=== PATIENT | female | born 1995 | race Caucasian/White ===

== ENCOUNTER 2018-05-02 19:45 | Emergency (ER) | payer MEDICAID ==
[~2018-05-02] VITALS: Ht 162.6 cm; Wt 96.2 kg
--- NOTE | 2018-05-02 20:17 | NUR ---
UA COLLECTED AND SENT BY TECH. PT TO US. DELAY IN MEDICATION ADMIN
[2018-05-02 20:21] LABS: MICROSCOPIC NOT IND
[2018-05-02 20:24] LABS: CULTURE INDICATED? NO
[2018-05-02] MEDS ORDERED: ONDANSETRON ODT 4 MG ONE (20:31)
--- NOTE | 2018-05-02 20:35 | NUR ---
FIRST CONTACT WITH PT. PT SITTING UP IN KT V[facility] NOTED. SO AT BEDSIDE. LAB IN TO DRAW. PT MEDICATED PER EMAR FOR NAUSEA. PT REPORTS 17 WEEKS , W/ HX OF N/V W/ . "TODAY IS WORSE". PT REPORTEDLY TOOK ZOFRAN 4MG PO AT HOME AT 1200 AND [employer] REPRESENTATIVE ADDING MACHINES WO RELIEF.
[2018-05-02 20:44] LABS: BASOPHILS # (AUTO) 0.05 x10^3/uL (0-0.1); BASOPHILS % (AUTO) 1 % (0-1); EOSINOPHILS # (AUTO) 0.08 x10^3/uL (0-0.4); EOSINOPHILS % (AUTO) 1 % (1-7); LYMPHOCYTES # (AUTO) 1.64 x10^3/uL (1-3.4); LYMPHOCYTES % (AUTO) 20 % (22-44); MD NO; MEAN CORPUSCULAR HEMOGLOBIN 32.2 pg (27.0-34.8); MEAN PLATELET VOLUME 8.3 fL (7.4-10.4); MONOCYTES # (AUTO) 0.46 x10^3/uL (0.2-0.8); MONOCYTES % (AUTO) 6 % (2-9); NEUTROPHILS # (AUTO) 5.93 x10^3/uL (1.8-6.8); NEUTROPHILS % (AUTO) 73 % (42-75); PLATELET COUNT 270 x10^3/uL (130-400); RED BLOOD COUNT 4.41 x10^6/uL (3.82-5.3); RED CELL DISTRIBUTION WIDTH 13.9 % (9.6-15.2)
[2018-05-02] MEDS ORDERED: PROMETHAZINE 25 MG/ML, 1ML IM STA ×2 (20:52→21:07)
[2018-05-02 20:56] LABS: ALANINE AMINOTRANSFERASE 19 U/L (12-78); ALBUMIN 3.3 g/dL (3.4-5.0); ANION GAP 8 mmol/L (5-15); CALCIUM 8.9 mg/dL (8.5-10.1); CHLORIDE 111 mmol/L (98-107); CREATININE 0.59 mg/dL (0.55-1.02)
[2018-05-02 20:59] LABS: ALKALINE PHOSPHATASE 73 U/L (45-117); BILIRUBIN,TOTAL 0.4 mg/dL (0.2-1.0); TOTAL PROTEIN 7.2 g/dL (6.4-8.2)
[2018-05-02] MEDS ORDERED: ONDANSETRON ODT 4 MG PO ONE (21:00)
[2018-05-02] MEDS ORDERED: PROMETHAZINE 25 MG/ML, 1ML ONE (21:08)
--- NOTE | 2018-05-02 21:17 | NUR ---
PT MEDICATED PER EMAR FOR NAUSEA. NO VOMITING SINCE BEFORE ARRIVAL TO ED. POC IS DC.
[2018-05-02 21:21] VITALS: BP 106/67
--- NOTE | 2018-05-02 21:55 | NUR ---
PT REPORTS 'FEELING BETTER'. POC IS DC. PT OFF MONITORING AT THIS TIME AND AMBULATED STEADILY TO BATHROOM. AWAITING DC INSTRUCTIONS.
--- NOTE | 2018-05-02 22:00 | NUR ---
DC EDUCATION PROVIDED, PT DEMONSTRATES UNDERSTANDING. PT AMBULATED STEADILY TO DC WITH RN AND SO
== END 2018-05-02 22:23 | disposition home or self-care (01) ==
LOC: ED 21:34
DX: O26.892 Other specified pregnancy related conditions, second trimester (principal); Z3A.21 21 weeks gestation of pregnancy; R11.2 Nausea with vomiting, unspecified
CPT/HCPCS: 36415; 76815; 80053; 81003; 85025; 96372; 99284; J2550; Q0162

== ENCOUNTER 2019-08-28 12:04 | Emergency (ER) | payer MEDICAID ==
[~2019-08-28] VITALS: Ht 160 cm; Wt 98.1 kg
[2019-08-28 12:05] VITALS: BP 129/99
--- NOTE | 2019-08-28 12:35 | NUR ---
Assumed care of patient. C/O LLE pain and edema. Reports chronic intermittent LLE edema every since having cellutlitis 4-5 years ago. C/O pain is new. NAD. Xray at bedside. Will continue to monitor.
[2019-08-28 12:38] LABS: BASOPHILS # (AUTO) 0.03 x10^3/uL (0-0.1); BASOPHILS % (AUTO) 0 % (0-1); EOSINOPHILS # (AUTO) 0.13 x10^3/uL (0-0.4); EOSINOPHILS % (AUTO) 2 % (1-7); LYMPHOCYTES # (AUTO) 1.84 x10^3/uL (1-3.4); LYMPHOCYTES % (AUTO) 30 % (22-44); MD NO; MEAN CORPUSCULAR HEMOGLOBIN 31.4 pg (27.0-34.8); MEAN CORPUSCULAR HGB CONC 34.3 g/dL (32.4-35.8); MEAN CORPUSCULAR VOLUME 91.4 fL (80-100); MEAN PLATELET VOLUME 8.4 fL (7.4-10.4); MONOCYTES # (AUTO) 0.29 x10^3/uL (0.2-0.8); MONOCYTES % (AUTO) 5 % (2-9); NEUTROPHILS # (AUTO) 3.83 x10^3/uL (1.8-6.8); NEUTROPHILS % (AUTO) 63 % (42-75); PLATELET COUNT 255 x10^3/uL (130-400); RED BLOOD COUNT 4.53 x10^6/uL (3.82-5.3); RED CELL DISTRIBUTION WIDTH 13.3 % (9.6-15.2)
[2019-08-28] MEDS ORDERED: KETOROLAC 30 MG/1 ML ONE (13:12)
[2019-08-28] MEDS ORDERED: KETOROLAC 30 MG/1 ML IM ONE (13:30)
== END 2019-08-28 13:54 | disposition home or self-care (01) ==
LOC: ED 13:14
DX: R60.0 Localized edema (principal); M79.672 Pain in left foot
CPT/HCPCS: 36415; 73630; 85025; 96372; 99284; J1885